=== PATIENT | male | born 1980 | race Caucasian/White ===

== ENCOUNTER 2021-11-18 09:06 | Day surgery (SDC) | payer OTHER ==
[~2021-11-18 09:06] MED LIST: COZAAR100 MG PO
== END 2021-11-18 18:00 | disposition home or self-care (01) ==
LOC: EDBD → CIR.AMB 09:06
PROVIDERS: ATTEND Orthopaedic Surgery
DX: S46.121A Laceration of muscle, fascia and tendon of long head of biceps, right arm, initial encounter (principal)